=== PATIENT | female | born 1930 | race Caucasian/White ===

== ENCOUNTER 2019-02-07 16:17 | Emergency (ER) | payer OTHER ==
[2019-02-07] MEDS ORDERED: HYDROCODONE/APAP 5/325 MG TAB ONE (17:12)
[2019-02-07] MEDS ORDERED: TETANUS & DIPHTHERIA TOX,ADULT 0.5 ML VIAL ONE (17:12)
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
[2019-02-07] MEDS ORDERED: ONDANSETRON 4 MG/2 ML VIAL ONE (18:27)
[2019-02-07] MEDS ORDERED: FENTANYL CITR 100 MCG/2 ML ONE (18:27)
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
[2019-02-07 20:05] VITALS: BP 123/56; TEMP 98; O2SAT 100
== END 2019-02-07 19:13 | disposition home or self-care (01) ==
LOC: ER 16:17
DX: S00.90XA Unspecified superficial injury of unspecified part of head, initial encounter (principal); S70.01XA Contusion of right hip, initial encounter; W01.0XXA Fall on same level from slipping, tripping and stumbling without subsequent striking against object, initial encounter; Y93.01 Activity, walking, marching and hiking; Y92.009 Unspecified place in unspecified non-institutional (private) residence as the place of occurrence of the external cause; Z79.82 Long term (current) use of aspirin; Z23 Encounter for immunization; I10 Essential (primary) hypertension; E78.5 Hyperlipidemia, unspecified; I25.10 Atherosclerotic heart disease of native coronary artery without angina pectoris
CPT/HCPCS: 70450; 72125; 73700; 73502; 73090; 90471; 90714; 96375; 96374; 99285; J3010; J2405